=== PATIENT | male | born 1950 | race Caucasian/White ===

== ENCOUNTER 2017-12-13 03:26 | Emergency (ER) | payer OTHER, BC ==
[~2017-12-13] VITALS: Ht 185.4 cm; Wt 133.1 kg
[2017-12-13 06:20] LABS: HEMATOCRIT 45.1 % (38.0-50.0); HEMOGLOBIN 15.5 G/DL (12.5-16.6); MCH 29.6 PG (29.0-34.0); MCHC 34.4 G/DL (30.0-36.0); MCV 86.1 FL (86-99); PLATELET COUNT 207 K/uL (156-360); RBC DIS.WIDTH-CV 12.4 % (11.8-14.6); RBC DIS.WIDTH-SD 38.9 % (39-53); RED BLOOD COUNT 5.24 M/uL (4.00-5.50); WHITE BLOOD COUNT 7.4 K/uL (4.1-10.2)
[2017-12-13 06:31] LABS: CHLORIDE 105 mEq/L (99-109); MAGNESIUM 2.2 mg/dL (1.3-2.7); SODIUM 139 mEq/L (136-147)
[2017-12-13 06:33] LABS: GLUCOSE 108 mg/dL (70-99)
[2017-12-13 06:36] LABS: CREATININE 0.8 mg/dL (0.6-1.3); GFR ESTIMATE (CALCULATED) > 59 mL/min/ (58.99-99999)
[2017-12-13 06:37] LABS: UREA NITROGEN (BUN) 21 mg/dL (9-23)
[2017-12-13 06:41] LABS: TROP-I INTERPRETATION NEGATIVE; TROPONIN-I < 0.01 ng/mL (0.0-0.30)
[2017-12-13 07:28] VITALS: BP 141/101
== END 2017-12-13 07:29 | disposition home or self-care (01) ==
LOC: EME 03:26
PROVIDERS: Emergency Medicine
DX: S06.5X0A Traumatic subdural hemorrhage without loss of consciousness, initial encounter (principal); S02.2XXA Fracture of nasal bones, initial encounter for closed fracture; I49.3 Ventricular premature depolarization; W06.XXXA Fall from bed, initial encounter; Z85.21 Personal history of malignant neoplasm of larynx
CPT/HCPCS: 70450; 70486; 80048; 83735; 84484; 85027; 93005; 99281; 99285